=== PATIENT | male | born 1950 | race American Indian/Alaskan Native ===

== ENCOUNTER 2018-09-20 23:02 | Emergency (ER) | payer MEDICARE, OTHER ==
--- NOTE | 2018-09-21 00:26 | XRay Report ---
PROCEDURE: XR KNEE 3V LT TECHNIQUE: 3 views of the left knee were obtained. HISTORY: pain and swelling L knee COMPARISONS: None FINDINGS: There is severe narrowing of the patellofemoral compartment with spurring inferiorly. There is a smal l suprapatellar joint effusion. The medial and lateral compartment appear intact. There is no evidenc e of fracture. IMPRESSION: Severe osteoarthrosis changes of the patellofemoral compartment with joint effusion. No evidence of f racture.. This document is electronically signed by Niles Hinton MD., September 21 2018 12:24:38 AM ET
--- NOTE | 2018-09-21 05:32 | Emergency Department Report ---
ED Lower Extremity HPI - General Chief Complaint: Extremity Injury, Lower Stated Complaint: LEFT KNEE PAIN & SWELLING Time Seen by Provider: 09/21/18 02:27 Source: patient Mode of arrival: Ambulatory Limitations: No Limitations - History of Present Illness MD Complaint: knee injury -: Gradual, Sudden Injury: Knee: Left (was bowling with . Wound felt a crackling sound in the followed by swelling and pain about one week ago been having continued swelling and pain since that time) Place: other Severity: mild Improves With: nothing Worsens With: nothing Context: other (was bowling with his ) Associated Symptoms: swelling, able to partially bear weight (walks with cane), ambulatory - Related Data Previous Rx's Medication Instructions Recorded Last Taken Type Acetaminophen [Tylenol Extra 1,000 mg PO QID PRN #30 tablet 06/18/18 Unknown Rx Strength] Cyclobenzaprine [Flexeril] 10 mg PO BID PRN #20 tablet 06/18/18 Unknown Rx Menthol/Camphor [[place] 1 applicatio TP QID PRN #1 tube 06/18/18 Unknown Rx Ointment] Ketorolac [Toradol] 10 mg PO Q8H PRN #10 tablet 09/21/18 Unknown Rx Allergies Allergy/AdvReac Type Severity Reaction Status Date / Time Penicillins Allergy Hives Verified 06/17/18 23:29 ED Review of Systems ROS: Stated complaint: LEFT KNEE PAIN & SWELLING Other details as noted in HPI Constitutional: denies: chills, fever Eyes: denies: eye pain, eye discharge, vision change ENT: denies: ear pain, throat pain Respiratory: denies: cough, shortness of breath, wheezing Cardiovascular: denies: chest pain, palpitations Endocrine: no symptoms reported Gastrointestinal: denies: abdominal pain, nausea, diarrhea Genitourinary: denies: urgency, dysuria Musculoskeletal: joint swelling, arthralgia. denies: back pain Skin: denies: rash, lesions Neurological: denies: headache, weakness, paresthesias Psychiatric: denies: anxiety, depression Hematological/Lymphatic: denies: easy bleeding, easy bruising ED Past Medical Hx - Past Medical History Hx Hypertension: Yes - Social History Smoking Status: Never Smoker Substance Use Type: Alcohol - Medications Home Medications: Home Medications Medication Instructions Recorded Confirmed Last Taken Type Acetaminophen [Tylenol Extra 1,000 mg PO QID PRN #30 tablet 06/18/18 Unknown Rx Strength] Cyclobenzaprine [Flexeril] 10 mg PO BID PRN #20 tablet 06/18/18 Unknown Rx Menthol/Camphor [[place] 1 applicatio TP QID PRN #1 tube 06/18/18 Unknown Rx Ointment] Ketorolac [Toradol] 10 mg PO Q8H PRN #10 tablet 09/21/18 Unknown Rx ED Physical Exam - General Limitations: No Limitations General appearance: alert, in no apparent distress - Head Head exam: Present: atraumatic, normocephalic - Eye Eye exam: Present: normal appearance, PERRL, EOMI Pupils: Present: normal accommodation - ENT ENT exam: Present: normal exam, mucous membranes moist - Neck Neck exam: Present: normal inspection, full ROM - Respiratory Respiratory exam: Present: normal lung sounds bilaterally. Absent: respiratory distress - Cardiovascular Cardiovascular Exam: Present: regular rate, normal rhythm. Absent: systolic murmur, diastolic murmur, rubs, gallop - GI/Abdominal GI/Abdominal exam: Present: soft, normal bowel sounds - Rectal Rectal exam: Present: deferred - Extremities Exam Extremities exam: Present: normal inspection, full ROM, tenderness, normal capillary refill, joint swelling, other (normal varus and valgus. Normal drawer test. There is some swelling noted to the prepatellar region and the medial knee. No crepitus noted with palpation or range of motion. No broken skin or bruising.) - Back Exam Back exam: Present: normal inspection, full ROM. Absent: CVA tenderness (R), CVA tenderness (L) - Neurological Exam Neurological exam: Present: alert, oriented X3 - Psychiatric Psychiatric exam: Present: normal affect, normal mood - Skin Skin exam: Present: warm, dry, intact, normal color. Absent: rash ED Course Vital Signs 09/20/18 23:05 Temperature 97.9 F Pulse Rate 78 Respiratory 18 Rate Blood Pressure 148/86 O2 Sat by Pulse 99 Oximetry Critical care attestation.: If time is entered above; I have spent that time in minutes in the direct care of this critically ill patient, excluding procedure time. ED Disposition Clinical Impression: Knee effusion, left, Left knee injury, Osteoarthritis Disposition: TO HOME OR SELFCARE Is pt being admited?: No Does the pt Need Aspirin: No Condition: Stable Instructions: Osteoarthritis (ED), Knee Effusion (ED), Leg Sprain (ED), Knee Pain (ED), Knee Sprain (ED) Prescriptions: Ketorolac [Toradol] 10 mg PO Q8H PRN #10 tablet PRN Reason: Pain Referrals: EMMA ESCALERA MD [Primary Care Provider] - 3-5 Days CHAGO SHUKLA MD [Staff Physician] - 3-5 Days
[2018-09-21 19:53] VITALS: BP 148/86
== END 2018-09-21 05:46 | disposition home or self-care (01) ==
LOC: ED 23:02
DX: S89.92XA Unspecified injury of left lower leg, initial encounter (principal); M25.462 Effusion, left knee; I10 Essential (primary) hypertension; Z88.0 Allergy status to penicillin; W18.39XA Other fall on same level, initial encounter; Y93.89 Activity, other specified; Y92.89 Other specified places as the place of occurrence of the external cause; Y99.8 Other external cause status
CPT/HCPCS: 99283